=== PATIENT | female | born 1935 | race Caucasian/White ===

== ENCOUNTER 2016-12-13 03:46 | Emergency (ER) | payer MEDICARE, BC ==
[2016-12-13] MEDS ORDERED: ONDANSETRON HCL 4 MG/2 ML VIAL ONE ×2 (04:03→04:21)
[2016-12-13] MEDS ORDERED: PANTOPRAZOLE 40 MG VIAL IV ONE ×2 (04:19→04:27)
[2016-12-13] MEDS ORDERED: NORMAL SALINE 100 ML IV ONE (04:20)
[2016-12-13 04:25] LABS: BASOPHILS 0.4 % (0.0-2.0); EOSINOPHILS 2.4 % (0.0-6.0); EOSINOPHILS# 0.2 X 10^3uL (0.0-0.4); HEMATOCRIT 42.9 % (36.0-48.0); HEMOGLOBIN 14.2 g/dL (12.0-16.0); LYMPHOCYTES 29.3 % (20.0-40.0); LYMPHOCYTES# 2.9 X 10^3uL (0.8-3.8); MEAN CELL VOLUME 85.1 fL (80.0-100.0); MEAN CORPUS. HGB CONCENTRATION 33.2 g/dL (32.0-36.0); MEAN CORPUSCULAR HEMOGLOBIN 28.3 pg (29.0-35.0); MEAN PLATELET VOLUME 8.7 fL (7.4-10.4); MONOCYTES 11.3 % (2.0-10.0); MONOCYTES# 1.1 X 10^3uL (0.2-1.0); NEUTROPHILS 56.6 % (54.0-75.0); NEUTROPHILS# 5.8 X 10^3uL (2.6-6.7); PLATELET COUNT 251 X 10^3uL (130-440); RED BLOOD COUNT 5.04 X 10^6uL (4.20-6.10); RED CELL DISTRIBUTION WIDTH 13.6 % (11.5-14.5)
[2016-12-13 04:36] LABS: ALBUMIN 4.1 g/dL (3.5-5.0); ALKALINE PHOSPHATASE 55 U/L (38-126); ALT 32 U/L (9-52); AST 24 U/L (14-36); BILIRUBIN, DIRECT 0.2 mg/dL (0.0-0.4); BILIRUBIN, TOTAL 0.7 mg/dL (0.2-1.3); BLOOD UREA NITROGEN 35 mg/dL (7-17); CHLORIDE 103 mmol/L (98-107); CREATININE 0.9 mg/dL (0.5-1.0); GLUCOSE 114 mg/dL (70-100); LIPASE 168 U/L (23-300); POTASSIUM 4.6 mmol/L (3.5-5.1); SODIUM 139 mmol/L (137-145); TOTAL PROTEIN 7.6 g/dL (6.3-8.2)
[2016-12-13 04:46] LABS: INR 1.1
--- NOTE | 2016-12-13 05:01 | ER NURSING DOCUMENTATION ---
Nurse's Notes [facility] Name:Ness Estes Age:81 yrs Sex:Female :1935 Arrival Date:12/13/2016 Time:03:46 Bed4 Private MD:Chandni Back Diagnosis:Upper GI Bleeding Presentation: 12/13 03:53 Presenting complaint: Patient states: Pt states she awoke suddenly with nausea and mk2 vomited once with bright red blood. Pt also reported sob on scene. Pt wears 2 L NC at night. Pt arrives in no distress on oxygen. Small amount of blood is visible on clothing and around lips. Pt received zofran in route. Transition of care: Home. Notified ED Physician of Dr. Tripp notified. Care prior to arrival: IV initiated. gauge and site 20G RAC Oxygen administered. Medication(s) given: Zofran 4mg IVP. 03:53 Acuity: ROHIT 3 mk2 03:53 Method Of Arrival: EMS: 410 mk2 Triage Assessment: 04:05 General: Appears in no apparent distress, Behavior is cooperative, flat. Pain: Denies mk2 pain. Neuro: Level of Consciousness is awake, Oriented to person, place, time, event. Cardiovascular: Murmur present. Respiratory: Breath sounds are clear bilaterally. GI: Reports nausea, vomiting, one episode. Derm: No deficits noted. 04:20 GI: Denies Blood in stool. mk2 Historical: - Allergies: No known drug Allergies; - Home Meds: 1. metoprolol tartrate 50 mg oral tab 3 times per day 2. pravastatin 80 mg oral tab once daily 3. aspirin 81 mg oral chew once daily 4. losartan 100 mg oral tab 1 tab once daily - PMHx: HYPERTENSION; hyperlipidemia; regurgitaion of aortic valve; - PSHx: NONE; Appendectomy; Tonsillectomy; - Tetanus: < 10 years. - Ebola Screening: : Patient negative for fever greater than or equal to 101.5 degrees Fahrenheit, and additional compatible Ebola Virus Disease symptoms. Patient denies exposure to infectious person. Patient denies travel to an Ebola-affected area in the 21 days before illness onset. No symptoms or risks identified at this time. . - Immunization history: Pneumococcal vaccine is up to date, Flu Vaccine < 1 year. - Social history: Smoking status: Patient states former smoker of tobacco. Patient/guardian denies using alcohol, street drugs. Screenin:07 Infectious Disease Risk None. Abuse screen: Denies threats or abuse. Nutritional mk2 screening: No deficits noted. Assessment: 04:06 See Triage Assessment done by same RN. mk2 Vital Signs: 04:06 BP 166 / 70; Pulse 74; Resp 15; Temp 98.0; Pulse Ox 88% on R/A; Weight 81.19 kg; Height mk2 5 ft. 0 in. (152.40 cm); Pain 0/10; 04:29 BP 153 / 67; Pulse 80; Resp 15; Pulse Ox 96% on 3 lpm NC; Pain 0/10; mk2 04:06 Body Mass Index 34.96 (81.19 kg, 152.40 cm) mk2 [place] Coma Score: 04:31 Eye Response: spontaneous(4). Verbal Response: oriented(5). Motor Response: obeys cd commands(6). Total: 15. ED Course: 03:47 Patient arrived in ED. ma1 03:47 Chandni Back MD is Private Physician. ma1 03:53 Delisa Wetzel, ROSALINO is Primary Nurse. mk2 03:58 Triage completed. mk2 04:06 Arm band placed on Bed in low position Call Light in Reach Gowned HOB Elevated Side mk2 rails up x1. 04:12 Michael Tripp MD is Attending Physician. cd 04:19 Valuables Remains with patient. teletype clerk on. Pulse ox on. NIBP on. Verbal mk2 reassurance given. Warm blanket given. 04:19 Oxygen Oxygen administration via nasal cannula @ 2L/min. mk2 04:29 Assist Provider rectal exam. Hemacult card negative. mk2 Administered Medications: 04:18 Drug: Zofran 4 mg; Route: IVP; Infused Over: 2 mins; Site: right antecubital; mk2 04:30 Follow up: Response: Nausea is decreased mk2 04:19 Drug: NS 0.9% 400 ml; Route: IV; Rate: bolus; Site: right antecubital; mk2 04:49 Follow up: IV Status: Completed infusion; IV Intake: 400ml mk2 04:19 Drug: Protonix 80 mg; Route: IVPB; Site: right antecubital; mk2 04:50 Follow up: IV Status: Completed infusion; IV Intake: 80ml mk2 04:19 Drug: Protonix 8 mg/hr; Route: IV; Rate: 8 calculated rate; Site: right antecubital; mk2 04:51 Follow up: IV Status: Infusing continued upon transfer mk2 Intake: 04:49 IV: 400ml; Total: 400ml. mk2 04:50 IV: 80ml; Total: 480ml. mk2 Outcome: 04:38 ER care complete, transfer ordered by . lj 04:39 Transferred: Patient will be transferred to: [facility]. Facility mk2 Acceptance Time: December 13, 2016 at 04:39 Patient's face sheet was faxed to accepting facility. Face Sheet included patient's name, address, age, gender, contact information and insurance information. Patient will be transported by: [facility] [place]. Nurse and Physician Charting and Notes were sent to Accepting Facility. All tests and/or procedures with results, if applicable, were sent to accepting facility. 04:56 Transferred: Report called to: Jadon Hu at [facility] mk2 04:56 Condition: stable 04:56 Discharge instructions given to patient, Instructed on 04:59 Instructed on need for transfer mk2 05:00 Patient left the ED. mk2 Signatures: Michael Tripp MD MD cd Kruger, Meg RN RN mk2 Laquita Spivey
--- NOTE | 2016-12-13 05:01 | ER PHYSICIAN DOCUMENTATION ---
Physician Documentation [facility] Name:Ness Estes Age:81 yrs Sex:Female :1935 Arrival Date:12/13/2016 Time:03:46 Bed4 Private MD:Chandni Back ED, Chris Disposition: 12/13/16 04:38 Transfer ordered to [facility]. Diagnosis is Upper GI Bleeding. - Reason for transfer: Specialty. - Accepting physician is [facility] Hospitalist. - Condition is Fair. - Problem is new. - Symptoms are unchanged. COBRA Form completed? Yes Transfer - Mode of Transportation Ambulance HPI: 12/13 04:15 This 81 yrs old Female presents to ER via EMS with complaints of GI Bleeding. cd 04:15 The patient presents to the emergency department vomiting blood, a moderate amount, 20 cd - 30 cc of Bright Red Blood after vomiting once, bright red, in a single episode. Onset: The symptom(s)/episode began/occurred acutely, just prior to arrival. Abdominal pain: none is appreciated. Associated signs and symptoms: The patient has no apparent associated signs or symptoms. Severity of symptoms: At their worst the symptoms were moderate in the emergency department the symptoms have improved mildly. The patient has experienced a previous episode, patient reports a GI bleed in the past.. Historical: - Allergies: No known drug Allergies; - Home Meds: 1. metoprolol tartrate 50 mg oral tab 3 times per day 2. pravastatin 80 mg oral tab once daily 3. aspirin 81 mg oral chew once daily 4. losartan 100 mg oral tab 1 tab once daily - PMHx: HYPERTENSION; hyperlipidemia; regurgitaion of aortic valve; - PSHx: NONE; Appendectomy; Tonsillectomy; - Tetanus: < 10 years. - Ebola Screening: : Patient negative for fever greater than or equal to 101.5 degrees Fahrenheit, and additional compatible Ebola Virus Disease symptoms. Patient denies exposure to infectious person. Patient denies travel to an Ebola-affected area in the 21 days before illness onset. No symptoms or risks identified at this time. . - Immunization history: Pneumococcal vaccine is up to date, Flu Vaccine < 1 year. - Social history: Smoking status: Patient states former smoker of tobacco. Patient/guardian denies using alcohol, street drugs. ROS: 04:30 ENT: Negative for injury, pain, epistaxis and discharge. cd Neck: Negative for injury, pain, stiffness and swelling. Cardiovascular: Negative for chest pain, palpitations, edema and pleuritic pain. Respiratory: Negative for shortness of breath, dyspnea on exertion, cough, sputum production, wheezing, hemoptysis and pleuritic chest pain. Back: Negative for injury, pain or muscle spasms. : Negative for injury, bleeding, discharge, dysuria, frequency, urgency and swelling. MS/Extremity: Negative for injury, deformity, edema, calf tenderness, pain or coldness. Skin: Negative for injury, rash, itching and discoloration. 04:30 Neuro: Negative for headache, weakness, numbness, tingling, and seizure. cd 04:30 Constitutional: Positive for poor PO intake, Negative for chills, fever. 04:30 Abdomen/GI: Positive for nausea, vomiting, anorexia, hematemesis, Negative for abdominal pain, diarrhea, abdominal distension, black/tarry stool, rectal bleeding. 04:30 All other systems are negative. Exam: ENT: Nares patent. No nasal discharge, no septal abnormalities noted. Tympanic membranes are normal and external auditory canals are clear. Oropharynx with no redness, swelling, or masses, exudates, or evidence of obstruction, uvula midline. Mucous membranes dry Neck: Trachea midline, no thyromegaly or masses palpated, and no cervical lymphadenopathy. Supple, full range of motion without nuchal rigidity, or vertebral point tenderness. No Meningismus. Cardiovascular: Regular rate and rhythm with a normal S1 and S2. No gallops, + loud murmur, Normal PMI, no JVD. No pulse deficits. Respiratory: Lungs have equal breath sounds bilaterally, clear to auscultation and percussion. No rales, rhonchi or wheezes noted. No increased work of breathing, no retractions or nasal flaring. Back: No spinal tenderness. No costovertebral tenderness. Full range of motion. MS/ Extremity: Pulses equal, no cyanosis. Neurovascular intact. Full, normal range of motion. 04:31 Neuro: Awake and alert, GCS 15, oriented to person, place, time, and situation. cd Cranial nerves II-XII grossly intact. Motor strength 5/5 in all extremities. Sensory grossly intact. Cerebellar exam normal. Normal gait. 04:31 Constitutional: The patient appears alert, awake, well developed, well nourished, anxious, obese, pale. 04:31 Abdomen/GI: Inspection: abdomen appears normal, Bowel sounds: normal, active, Palpation: abdomen is soft and non-tender, Rectal exam: rectal tone normal, Stool: normal, brown, guaiac negative, Liver: no appreciated palpable abnormalities. 04:31 Skin: Appearance: Color: pale. Vital Signs: 04:06 BP 166 / 70; Pulse 74; Resp 15; Temp 98.0; Pulse Ox 88% on R/A; Weight 81.19 kg; Height mk2 5 ft. 0 in. (152.40 cm); Pain 0/10; 04:29 BP 153 / 67; Pulse 80; Resp 15; Pulse Ox 96% on 3 lpm NC; Pain 0/10; mk2 04:06 Body Mass Index 34.96 (81.19 kg, 152.40 cm) mk2 [place] Coma Score: 04:31 Eye Response: spontaneous(4). Verbal Response: oriented(5). Motor Response: obeys cd commands(6). Total: 15. MDM: 04:05 Data interpreted: Pulse oximetry: on room air is 88 %. Interpretation: hypoxia. Plan: cd O2 by OR applied. 04:12 Patient medically screened. cd 04:34 Differential diagnosis: gastritis, varices, Upper GI Bleed, Peptic Ulcer. cd 04:36 Data reviewed: vital signs, nurses notes, old medical records, lab test result(s), and cd as a result, I will *Transfer Patient administer IV fluids, NS bolus, NS maintenence, IV Protonix Bolus and IV Drip. 04:37 Counseling: I had a detailed discussion with the patient and/or guardian regarding: the cd historical points, exam findings, and any diagnostic results supporting the discharge/admit diagnosis, lab results, the need to transfer to another facility, [facility] not immediately [facility] specialist. Response to treatment: the patient's symptoms have mildly improved after treatment, and as a result, I will transfer the patient to [facility]. 04:38 Physician consultation: Ramona Seals MD was called at 04:35, was contacted at cd 04:40, regarding admission, to the floor, consult, patient's condition, need to evaluate the patient as soon as possible, and will see patient in inpatient room, shortly, later today, after a discussion of the case, a recommendation for transfer for higher level of care is made. 12/13 04:32 Order name: CBC AUTO DIF, MDIF/RMOR IF IND; Complete Time: 21:25 EDMS 12/13 04:34 Interpretation: Normal. 12/13 04:40 Order name: BASIC METABOLIC PANEL; Complete Time: 21:25 EDMS 12/13 04:42 Interpretation: Normal Except: BLOOD UREA NITROGEN 35. 12/13 04:40 Order name: HEPATIC PANEL; Complete Time: 21:25 EDMS 12/13 04:42 Interpretation: Normal. 12/13 04:40 Order name: LIPASE; Complete Time: 21:25 EDMS 12/13 04:42 Interpretation: Normal. 12/13 04:51 Order name: PROTIME/INR; Complete Time: 21:25 EDMS 12/14 21:25 Interpretation: Normal. 12/13 04:15 Order name: Pulse Ox Continuous; Complete Time: 04:18 12/13 04:15 Order name: Cardiac Monitoring - Continuous; Complete Time: 04:18 cd Dispensed Medications: 04:18 Drug: Zofran 4 mg; Route: IVP; Infused Over: 2 mins; Site: right antecubital; mk2 04:30 Follow up: Response: Nausea is decreased mk2 04:19 Drug: NS 0.9% 400 ml; Route: IV; Rate: bolus; Site: right antecubital; mk2 04:49 Follow up: IV Status: Completed infusion; IV Intake: 400ml mk2 04:19 Drug: Protonix 80 mg; Route: IVPB; Site: right antecubital; mk2 04:50 Follow up: IV Status: Completed infusion; IV Intake: 80ml mk2 04:19 Drug: Protonix 8 mg/hr; Route: IV; Rate: 8 calculated rate; Site: right antecubital; mk2 04:51 Follow up: IV Status: Infusing continued upon transfer mk2 Signatures: Michael Tripp MD MD cd Kruger, Delisa, RN RN mk2
== END 2016-12-13 05:00 | disposition short-term general hospital (02) ==
LOC: ER 03:46
DX: K92.0 Hematemesis (principal); E86.0 Dehydration; R11.0 Nausea; R09.02 Hypoxemia; I10 Essential (primary) hypertension; E78.5 Hyperlipidemia, unspecified; Z79.82 Long term (current) use of aspirin; Z79.899 Other long term (current) drug therapy; Z99.89 Dependence on other enabling machines and devices; Z99.81 Dependence on supplemental oxygen; Z74.3 Need for continuous supervision
CPT/HCPCS: 80048; 80076; 83690; 85025; 85610; 96365; 96375; 99285; A0425; A0426; A0427; J2405